=== PATIENT | female | born 1985 | race American Indian/Alaskan Native ===

== ENCOUNTER 2017-10-05 04:33 | Inpatient (IN) | payer BC, MEDICAID ==
[2017-10-05] MEDS ORDERED: Methylergonovine 0.2 MG/1 ML Amp IM PRN (05:01)
[2017-10-05] MEDS ORDERED: Carboprost Tromethamine 250 MCG/1 ML Amp IM PRN (05:01)
[2017-10-05] MEDS ORDERED: Butorphanol 1 MG/ML SDV IVPUSH PRN (05:01)
[2017-10-05] MEDS ORDERED: Nalbuphine 10 MG/1 ML Vial IVPUSH PRN (05:01)
[2017-10-05] MEDS ORDERED: Water For Irrigation,Sterile 1,000 ML Container IRR PRN (05:01)
[2017-10-05] MEDS ORDERED: Tranexamic Acid 1,000 MG in Sodium Chloride 0.9% 100 ML IV PRN (05:01)
[2017-10-05] MEDS ORDERED: Lidocaine 1% 50 ML MDV INJECT PRN (05:01)
[2017-10-05] MEDS ORDERED: Misoprostol 200 MCG Tab PO PRN (05:01)
[2017-10-05] MEDS ORDERED: Sodium Chloride 0.9% 10 ML Syringe FLUSH PRN (05:01)
[2017-10-05] MEDS ORDERED: Sodium Chloride 0.9% 2.5 ML Syringe FLUSH PRN (05:01)
[2017-10-05] MEDS ORDERED: Oxytocin/0.9 % Sodium Chloride 30 UNIT/500 ML BAG IV SCH (05:15)
[2017-10-05] MEDS: Lactated Ringers 1,000 ML IV SCH ×3 (05:30→08:54)
--- NOTE | 2017-10-05 07:09 | PCM.LDHP ---
L&D History of Present Illness - General Date of Service: 10/05/17 Admit Problem/Dx: Patient Status Order with Admit Dx/Problem 10/05/17 05:01 Patient Status [ADT] Routine Admission Diagnosis/Problem Admission Diagnosis/Problem - planned 10/05/17 07:03 32yo EDC 10/31/2017 36 2/7wks. A+. RI, GBS neg. 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: - Past Surgical History HEENT Surgical History: Reports: Other (See Below) Other HEENT Surgeries/Procedures: wisdom toothe ectraction Social & Family History - Family History Family Medical History: Noncontributory - Tobacco Use Smoking Status *Q: Never Smoker Second Hand Smoke Exposure: No - Caffeine Use Caffeine Use: Reports: Coffee, Soda - Recreational Drug Use Recreational Drug Use: No H&P Review of Systems - Review of Systems: Review Of Systems: See Below General: Reports: No Symptoms HEENT: Reports: No Symptoms Pulmonary: Reports: No Symptoms Cardiovascular: Reports: No Symptoms Gastrointestinal: Reports: No Symptoms Genitourinary: Reports: No Symptoms Musculoskeletal: Reports: No Symptoms Skin: Reports: No Symptoms Psychiatric: Reports: No Symptoms Neurological: Reports: No Symptoms Hematologic/Lymphatic: Reports: No Symptoms Immunologic: Reports: No Symptoms L&D Exam - Exam Exam: See Below - Vital Signs Weight: 79.832 kg - OB Specific Fundal Height In cm: 36 Contraction Intensity: Strong Movement: Active Heart Tones: Present Heart Tones per Min: 145 Heart Rate (FHR) Variability: Moderate (6-25 bmp) Presentation: Vertex Estimated Weight: 3200 - Moralez Score Moralez Score Cervix Position: Anterior Moralez Score Consistency: Soft Moralez Score Effacement: >80% Moralez Score Dilation: > 5 cm Moralez Score Infant's Station: -2 Moralez Score Total: 11 - Exam General: Alert, Oriented, Cooperative HEENT: Hearing Intact Lungs: Normal Respiratory Effort GI/Abdominal Exam: Soft, Non-Tender Rectal Exam: Deferred Genitourinary: Normal bimanual exam, Cervical dilitation Back Exam: Full Range of Motion Extremities: Normal Inspection, Normal Range of Motion, Non-Tender, No Pedal Edema, Normal Capillary Refill Skin: Warm, Dry, Intact Neurological: Cranial Nerves Intact, Normal Speech, Normal Tone Psychiatric: Alert, Normal Affect, Normal Mood - Patient Data Lab Results Last 24 hrs: Laboratory Results - last 24 hr 10/05/17 10/05/17 Range/Units 05:08 05:08 WBC 9.42 (4.0-11.0) K/uL RBC 4.12 L (4.30-5.90) M/uL Hgb 12.5 (12.0-16.0) g/dL Hct 37.0 (36.0-46.0) % MCV 89.8 (80.0-98.0) fL MCH 30.3 (27.0-32.0) pg MCHC 33.8 (31.0-37.0) g/dL RDW Std Deviation 42.1 (28.0-62.0) fl RDW Coeff of Jocelyn 13 (11.0-15.0) % Plt Count 198 (150-400) K/uL MPV 9.90 (7.40-12.00) fL Nucleated RBC % 0.0 /100WBC Nucleated RBCs # 0 K/uL Blood Type A POSITIVE Antibody Screen NEGATIVE Result Diagrams: 10/05/17 05:08 - Problem List (1) Supervision of normal IUP (intrauterine ) in multigravida SNOMED Code(s): 004621372, 343530962, 468520444 ICD Code: Z34.80 - ENCOUNTER FOR SUPRVSN OF NORMAL , UNSP TRIMESTER Status: Acute Current Visit: Yes Qualifiers: Trimester: third trimester Qualified Code(s): Z34.83 - Encounter for supervision of other normal , third trimester Problem List Initiated/Reviewed/Updated: Yes Orders Last 24hrs: Active Orders 24 hr Category Date Time Status Patient Status [ADT] Routine ADT 10/05/17 05:01 Active Heart Tones [RC] CONTINUOUS Care 10/05/17 05:01 Active Non Stress Test [RC] PER UNIT ROUTINE Care 10/05/17 05:01 Active May Shower [RC] ASDIRECTED Care 10/05/17 05:01 Active Notify Provider [RC] PRN Care 10/05/17 05:01 Active Up ad Akanksha [RC] ASDIRECTED Care 10/05/17 05:01 Active Vaginal Exam [RC] PRN Care 10/05/17 05:01 Active Vital Signs [RC] PER UNIT ROUTINE Care 10/05/17 05:01 Active Butorphanol [Stadol] Med 10/05/17 05:01 Active 1 mg IVPUSH Q1H PRN Carboprost Tromethamine [Hemabate DS] Med 10/05/17 05:01 Active 250 mcg IM ASDIRECTED PRN Lactated Ringers [Ringers, Lactated] 1,000 ml Med 10/05/17 05:15 Active IV ASDIRECTED Lidocaine 1% [Xylocaine 1%] Med 10/05/17 05:01 Active 50 ml INJECT .ONCE PRN Methylergonovine [Methergine] Med 10/05/17 05:01 Active 0.2 mg IM ASDIRECTED PRN Misoprostol [Cytotec] Med 10/05/17 05:01 Active 200 mcg PO .ONCE PRN Nalbuphine [Nubain] Med 10/05/17 05:01 Active 10 mg IVPUSH Q1H PRN Oxytocin/0.9 % Sodium Chloride [Oxytocin 30 Unit/500 ML Med 10/05/17 05:15 Active -NS] 30 unit in 500 ml IV TITRATE Sodium Chloride 0.9% [Saline Flush] Med 10/05/17 05:01 Active 10 ml FLUSH ASDIRECTED PRN Sodium Chloride 0.9% [Saline Flush] Med 10/05/17 05:01 Active 2.5 ml FLUSH ASDIRECTED PRN Tranexamic Acid [Cyklokapron] 1,000 mg Med 10/05/17 05:01 Active Sodium Chloride 0.9% [Normal Saline] 100 ml IV ONETIME Water For Irrigation,Sterile [Sterile Water for Med 10/05/17 05:01 Active Irrigation] 1,000 ml IRR ASDIRECTED PRN Scalp Electrode [WOMSER] Per Unit Routine Oth 10/05/17 05:01 Ordered Peripheral IV Insertion Adult [OM.PC] Routine Oth 10/05/17 05:01 Ordered Resuscitation Status Routine Resus Stat 10/05/17 05:01 Ordered Medication Orders Butorphanol Tartrate (Stadol) 1 mg IVPUSH Q1H PRN PRN Reason: Pain Carboprost Tromethamine (Hemabate Ds) 250 mcg IM ASDIRECTED PRN PRN Reason: Post Hemorrhage Lactated Ringer's (Ringers, Lactated) 1,000 mls @ 150 mls/hr IV ASDIRECTED ON LICENSE OF [facility] Last Admin: 10/05/17 05:30 Dose: 150 mls/hr Oxytocin/Sodium Chloride (Oxytocin 30 Unit/500 Ml-Ns) 30 unit in 500 mls @ 999 mls/hr IV TITRATE ON LICENSE OF [facility] Tranexamic Acid 1,000 mg/ (Sodium Chloride) 110 mls @ 660 mls/hr IV ONETIME PRN PRN Reason: Bleeding Lidocaine HCl (Xylocaine 1%) 50 ml INJECT .ONCE PRN PRN Reason: Laceration repair Methylergonovine Maleate (Methergine) 0.2 mg IM ASDIRECTED PRN PRN Reason: Post Hemorrhage Misoprostol (Cytotec) 200 mcg PO .ONCE PRN PRN Reason: Post Hemorrhage Nalbuphine HCl (Nubain) 10 mg IVPUSH Q1H PRN PRN Reason: Pain (severe 7-10) Sodium Chloride (Saline Flush) 10 ml FLUSH ASDIRECTED PRN PRN Reason: Keep Vein Open Sodium Chloride (Saline Flush) 2.5 ml FLUSH ASDIRECTED PRN PRN Reason: Keep Vein Open Sterile Water (Sterile Water For Irrigation) 1,000 ml IRR ASDIRECTED PRN PRN Reason: delivery Assessment/Plan Comment:: Labor A: 32yo EDC 10/31/2017 36 2/7wks. A+. RI, GBS neg. Comes in active labor, intact P: Admit, epidural now, anticipate . Dr Lara and [facility] updated.
--- NOTE | 2017-10-05 07:20 | PCM.PREANE ---
Preanesthetic Assessment - Anesthesia/Transfusion/Family Hx Anesthesia History: Prior Anesthesia Without Reaction Family History of Anesthesia Reaction: No Transfusion History: No Prior Transfusion(s) - Physical Assessment Height: 1.65 m Weight: 79.832 kg Mental Status: Alert & Oriented x3 Airway Class: Mallampati = 2 Dentition: Reports: Normal Dentition ROM/Head Extension: Full - Lab Values: Laboratory Last Values WBC 9.42 K/uL (4.0-11.0) 10/05/17 05:08 RBC 4.12 M/uL (4.30-5.90) L 10/05/17 05:08 Hgb 12.5 g/dL (12.0-16.0) 10/05/17 05:08 Hct 37.0 % (36.0-46.0) 10/05/17 05:08 MCV 89.8 fL (80.0-98.0) 10/05/17 05:08 MCH 30.3 pg (27.0-32.0) 10/05/17 05:08 MCHC 33.8 g/dL (31.0-37.0) 10/05/17 05:08 RDW Std Deviation 42.1 fl (28.0-62.0) 10/05/17 05:08 RDW Coeff of Jocelyn 13 % (11.0-15.0) 10/05/17 05:08 Plt Count 198 K/uL (150-400) 10/05/17 05:08 MPV 9.90 fL (7.40-12.00) 10/05/17 05:08 Nucleated RBC % 0.0 /100WBC 10/05/17 05:08 Nucleated RBCs # 0 K/uL 10/05/17 05:08 Blood Type A POSITIVE 10/05/17 05:08 Antibody Screen NEGATIVE 10/05/17 05:08 - Allergies Allergies/Adverse Reactions: Allergies Allergy/AdvReac Type Severity Reaction Status Date / Time Penicillins Allergy Hives Verified 02/09/17 09:04 - Acknowledgements Anesthesia Type Planned: Epidural Pt an Appropriate Candidate for the Planned Anesthesia: Yes Alternatives and Risks of Anesthesia Discussed w Pt/Guardian: Yes Pt/Guardian Understands and Agrees with Anesthesia Plan: Yes PreAnesthesia Questionnaire Respiratory History: Reports: 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: - Past Surgical History HEENT Surgical History: Reports: Other (See Below) Other HEENT Surgeries/Procedures: wisdom toothe ectraction - SUBSTANCE USE Smoking Status *Q: Never Smoker Second Hand Smoke Exposure: No Recreational Drug Use History: No - CURRENT (IN HOUSE) MEDS Current Meds: Current Medications Butorphanol Tartrate (Stadol) 1 mg IVPUSH Q1H PRN PRN Reason: Pain Carboprost Tromethamine (Hemabate Ds) 250 mcg IM ASDIRECTED PRN PRN Reason: Post Hemorrhage Lactated Ringer's (Ringers, Lactated) 1,000 mls @ 150 mls/hr IV ASDIRECTED RADHA Last Admin: 10/05/17 07:14 Dose: 150 mls/hr Oxytocin/Sodium Chloride (Oxytocin 30 Unit/500 Ml-Ns) 30 unit in 500 mls @ 999 mls/hr IV TITRATE RADHA Tranexamic Acid 1,000 mg/ (Sodium Chloride) 110 mls @ 660 mls/hr IV ONETIME PRN PRN Reason: Bleeding Lidocaine HCl (Xylocaine 1%) 50 ml INJECT .ONCE PRN PRN Reason: Laceration repair Methylergonovine Maleate (Methergine) 0.2 mg IM ASDIRECTED PRN PRN Reason: Post Hemorrhage Misoprostol (Cytotec) 200 mcg PO .ONCE PRN PRN Reason: Post Hemorrhage Nalbuphine HCl (Nubain) 10 mg IVPUSH Q1H PRN PRN Reason: Pain (severe 7-10) Sodium Chloride (Saline Flush) 10 ml FLUSH ASDIRECTED PRN PRN Reason: Keep Vein Open Sodium Chloride (Saline Flush) 2.5 ml FLUSH ASDIRECTED PRN PRN Reason: Keep Vein Open Sterile Water (Sterile Water For Irrigation) 1,000 ml IRR ASDIRECTED PRN PRN Reason: delivery Discontinued Medications Fentanyl/Bupivacaine HCl (Cwzxsban-Rpors-Jt 2 Mcg/Ml-0.125%) Confirm Administered Dose 100 mls @ as directed ANGELIQUE ALANIZ-MED ONE Stop: 10/05/17 06:59
--- NOTE | 2017-10-05 07:24 | PCM.PRNOTE ---
- Free Text/Narrative Note: Anes Note Patient requests epidural for L&D. Risks and methods were discussed. Sitting position. Bet prep X 3 to lumbar area. Sterile technique. Level L3-L4 midlines approach. LOcal 3 cc 1% lido with epi. 17 X 3 7/8 Tuohy needle. Epidural space easily achieved single attempt with ease. Cath threaded 3 cm with ease. Test 3 cc 1.5% lido with epi neg. Load 10 cc pump solution in slow divided doses. Pump started at 8 cc hr with 6 cc q 20 min prn bolus. Tolerated well. Patient reports excellent analgesia. Time with patient [id number]. Thank you Darell Duron CRNA
[2017-10-05] MEDS ORDERED: Ibuprofen 800 MG Tab PO PRN (12:03)
[2017-10-05] MEDS ORDERED: Docusate Sodium 100 MG Cap PO PRN (12:03)
[2017-10-05] MEDS ORDERED: Lanolin 100% Cream 7 GM Tube TOP PRN (12:03)
[2017-10-05] MEDS ORDERED: Acetaminophen 500 MG Tab PO PRN ×2 (12:03)
[2017-10-05] MEDS ORDERED: Bisacodyl 10 MG Supp RECTAL PRN (12:03)
[2017-10-05] MEDS ORDERED: Witch Hazel Medicated Pads 40/Jar TOP PRN (12:03)
[2017-10-05] MEDS ORDERED: Aluminum Hydroxide/Magnesium Hydroxide/Simethicone Susp 30 ML Cup PO PRN (12:03)
[2017-10-05] MEDS ORDERED: Ibuprofen 400 MG Tab PO PRN (12:03)
[2017-10-05] MEDS ORDERED: Ondansetron 4 MG/2 ML SDV IVPUSH PRN (12:03)
[2017-10-05] MEDS ORDERED: Benzocaine/Menthol 20%-0.5% Spray 78 GM Cannister TOP PRN (12:03)
[2017-10-05] MEDS ORDERED: oxyCODONE 5 MG Tab PO PRN (12:03)
--- NOTE | 2017-10-05 13:18 | OR ---
SURGEON: Freida Redmond M.D. DATE OF PROCEDURE: 10/05/2017 PREOPERATIVE DIAGNOSES: 1. A 36 and 2 week intrauterine . 2. labor. POSTOPERATIVE DIAGNOSES: 1. A 36 and 2 week intrauterine . 2. labor. PROCEDURE: Spontaneous vaginal delivery, intact perineum. MEDICAL AFFAIRS DIRECTOR: Higinio Navarro, MS-4 ESTIMATED BLOOD LOSS: 250 mL. ANESTHESIA: Epidural. COMPLICATIONS: None known. FINDINGS: A viable male, score 8 at 1 minute, 8 at 5 minutes. Weight is pending. Spontaneous delivery, intact placenta of 3-vessel cord. DISPOSITION: to nursery, mom in LDRP. 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 On initial exam, she was found to be 5-6 cm dilatation. She was admitted. Routine labs were drawn. She is group B beta strep negative. Her attending at that time was Bri Vogel. Amniotomy was performed, clear fluid was returned, shortly after 0700. The patient was approximately 7 cm at that time. I assumed care of the patient at approximately 0800. At that time, she was still found to be 7 cm. The patient progressed throughout the morning hours, ultimately to complete shortly after 1100. I was called for delivery. Upon my arrival, the patient was placed in modified dorsolithotomy position, prepped and draped in the usual aseptic manner. The heart tones were in the 120s. The patient began pushing with contractions, was able to push effectively to a +4 station with delivery of the 's head, followed by anterior shoulder, posterior shoulder, remainder of body without difficulty. The 's oropharynx and nares bulb suctioned. Cord clamped x2 and cut. Infant was handed off to his mother, attending nursing staff at her side. Cord arterial, cord venous, cord blood samples obtained. Light pressure was applied. The placenta was delivered spontaneously intact. Vigorous fundal uterine massage was then applied while 30 units of Pitocin was delivered in 500 mL IV fluid. Upon inspection of cervix, vaginal sidewalls, and perineum these were found to be intact. Hemostasis evident. Sponge count is correct. The patient will remain in LDRP. Infant to nursery. SOLBSAR / WAYLONL /[id number]
--- NOTE | 2017-10-05 18:01 | PCM48HPAN ---
Post Anesthesia Note - EVALUATION WITHIN 48HRS OF ANESTHETIC Vital Signs in Normal Range: Yes Patient Participated in Evaluation: Yes Respiratory Function Stable: Yes Airway Patent: Yes Cardiovascular Function Stable: Yes Hydration Status Stable: Yes Pain Control Satisfactory: Yes Nausea and Vomiting Control Satisfactory: Yes Mental Status Recovered: Yes Resp Rate: 18
== END 2017-10-05 19:11 | disposition home or self-care (01) | DRG 560 ==
LOC: MW.OBCHECK 04:33 → MW.OB 04:36 → MW.OBCHECK 05:01 → MW.OB 05:01 → OBSVTOIN 11:40 → MW.OB 14:30
PROVIDERS: ADMIT Obstetrics & Gynecology; ATTEND Obstetrics & Gynecology
PROC: 10E0XZZ Delivery of Products of Conception, External Approach (ICD-10-PCS; principal; 2017-10-05)
PROC: 10907ZC Drainage of Amniotic Fluid, Therapeutic from Products of Conception, Via Natural or Artificial Opening (ICD-10-PCS; 2017-10-05)
PROC: 00HU33Z Insertion of Infusion Device into Spinal Canal, Percutaneous Approach (ICD-10-PCS; 2017-10-05)
PROC: 3E0R3BZ Introduction of Anesthetic Agent into Spinal Canal, Percutaneous Approach (ICD-10-PCS; 2017-10-05)
DX: O60.14X0 Preterm labor third trimester with preterm delivery third trimester, not applicable or unspecified (principal); Z88.0 Allergy status to penicillin; Z3A.36 36 weeks gestation of pregnancy; Z37.0 Single live birth
CPT/HCPCS: 36415; 51702; 59025; 59409; 82803; 85027; 86850; 86900; 86901; A9270-GY; J2590; J7120